=== PATIENT | male | born 1995 | race Caucasian/White ===

== ENCOUNTER 2018-05-17 16:42 | Emergency (ER) | payer OTHER ==
[2018-05-17 17:00] VITALS: BP 139/91
--- NOTE | 2018-05-17 17:23 | UC ---
UC General HPI - HPI Summary HPI Summary: This patient is a 23 year old M presenting to [facility] [place] with a chief complaint of left nostril epistaxis that began an hour ago. The patient rates the pain 0/10 in severity. The patient states the last couple weeks he has been having intermittent nose bleed but they have not been as severe as today. Patient denies dizziness and trauma. He has had past nasal cauterized in this nostril. Hx chronic nosebleeds. - History of Current Complaint Chief Complaint: UCRespiratory Stated Complaint: NOSE BLEED Time Seen by Provider: 05/17/18 16:57 Hx Obtained From: Patient Onset/Duration: Lasting Hours - 1, Still Present Timing: Constant Onset Severity: Moderate Current Severity: Moderate Pain Intensity: 0 Associated Signs & Symptoms: Positive: Other - epistaxis - Allergy/Home Medications Allergies/Adverse Reactions: Allergies Allergy/AdvReac Type Severity Reaction Status Date / Time No Known Allergies Allergy Verified 05/17/18 18:03 Home Medications: Home Medications Finasteride 5 mg PO DAILY 05/17/18 [History Confirmed 05/17/18] Glycopyrrolate 1 mg PO DAILY 05/17/18 [History Confirmed 05/17/18] PMH/Surg Hx/FS Hx/Imm Hx - Additional Past Medical History Additional PMH: epistaxis Other History Of: Negative For: Hepatitis C - Surgical History Surgical History: None - Family History Known Family History: Negative: Respiratory Disease, Seizure Disorder - Social History Alcohol Use: Weekly Substance Use Type: None Smoking Status (MU): Never Smoked Tobacco Review of Systems ENT: Epistaxis Neurological: Negative - dizziness All Other Systems Reviewed And Are Negative: Yes Physical Exam - Summary Physical Exam Summary: General: well-appearing, no pain distress Skin: warm, color reflects adequate perfusion, dry Head: normal Eyes: EOMI, DEBBIE ENT: Anterior epistaxis in the left nostril Neck: supple, nontender Respiratory: CTA, breath sounds present Cardiovascular: RRR Abdomen: soft, nontender Bowel: present Musculoskeletal: normal, strength/ROM intact Neurological: sensory/motor intact, A&O x3 Psychological: affect/mood appropriate Triage Information Reviewed: Yes Vital Signs: Initial Vital Signs Temp 97.7 F 05/17/18 16:54 Pulse 66 05/17/18 16:54 Resp 18 05/17/18 16:54 BP 139/91 05/17/18 16:54 Pulse Ox 100 05/17/18 16:54 Vital Signs Reviewed: Yes Course/Dx - Course Course Of Treatment: Patient is a 22-year-old male who presents to the urgent care with left nostril epistaxis. Unable to visualize with the bleeding but he suspect is anterior bleeding. There is no Rhino Rocket is available in the urgent care therefore I placed the patient a Merocel packing and he seems that the slow down the bleeding. However he was recommended to go to the emergency department if he continues to bleed. Otherwise he was given a referral for an ENT doctor for the next couple days. Patient is hemodynamically stable alert and oriented 3. Patient agrees with plan. - Differential Dx - Multi-Symptom Provider Diagnoses: Epistaxis Discharge - Sign-Out/Discharge Documenting (check all that apply): Patient Departure All imaging exams completed and their final reports reviewed: No Studies - Discharge Plan Condition: Improved Disposition: HOME-RECOMMEND TO ED Patient Education Materials: Nosebleed (ED) Referrals: Liam Lopez MD [Medical Doctor] - Additional Instructions: Patient is discharged to the emergency department for further workup and management. And the patient declined ambulance transfer. - Billing Disposition and Condition Condition: IMPROVED Disposition: Home-Recommend to ED - Attestation Statements Document Initiated by Scribe: Yes Documenting Scribe: Jake Rodriguez Provider For Whom Chary is Documenting (Include Credential): Narendra Hsu MD Scribe Attestation: Jake Saba scribed for Narendra Hsu MD on 05/17/18 at 1817. Scribe Documentation Reviewed: Yes Provider Attestation: The documentation as recorded by the Jake bender accurately reflects the service I personally performed and the decisions made by me, Narendra Hsu MD
== END 2018-05-17 17:28 | disposition home health service (06) ==
LOC: UCEAST 16:42
DX: R04.0 Epistaxis (principal)
CPT/HCPCS: 30905; 99202; G0463

== ENCOUNTER 2018-05-17 17:51 | Emergency (ER) | payer OTHER ==
[2018-05-17] MEDS ORDERED: Lidocaine 2% JELLY* 10 ML JELLY TOPICAL ONE (18:34)
[2018-05-17] MEDS ORDERED: Oxymetazoline 0.05% NASAL SPR* 15 ML BTL LEFT NARE ONE (18:34)
[2018-05-17] MEDS ORDERED: Lidocaine 2% JELLY* 6 ML JELLY TOPICAL ONE (18:38)
--- NOTE | 2018-05-17 18:41 | ED ---
Throat Pain/Nasal Congestion - HPI Summary HPI Summary: 23 year old male presents to bleed from his left naris for the past couple hours. He states he was seen in urgent care and a merocel was placed but they sent him here as they wanted to sure the bleeding was controlled. He states that he has had his nose cauterized before. He states he placed a nasal saline to prevent nosebleeds as has a history of such. He is on blood thinners. No other complaints. He is not dizzy. No active bleeding at this time noted. Discussed with patient and patient would like a Rhino Rocket placed. - History of Current Complaint Chief Complaint: EDEpistaxis Time Seen by Provider: 05/17/18 18:24 - Allergies/Home Medications Allergies/Adverse Reactions: Allergies Allergy/AdvReac Type Severity Reaction Status Date / Time No Known Allergies Allergy Verified 05/17/18 18:03 PMH/Surg Hx/FS Hx/Imm Hx Endocrine/Hematology History: Denies: Hx Anticoagulant Therapy Respiratory History: Denies: Hx Asthma Infectious Disease History: No Infectious Disease History: Denies: Traveled Outside the [place] in Last 30 Days - Family History Known Family History: Negative: Respiratory Disease, Seizure Disorder - Social History Alcohol Use: Weekly Substance Use Type: Reports: None Smoking Status (MU): Never Smoked Tobacco Review of Systems Negative: Fever Positive: Epistaxis Negative: Chest Pain Negative: Shortness Of Breath All Other Systems Reviewed And Are Negative: Yes Physical Exam Triage Information Reviewed: Yes Vital Signs On Initial Exam: Initial Vitals Temp Pulse Resp BP Pulse Ox 98.1 F 63 18 136/82 99 05/17/18 18:00 05/17/18 18:00 05/17/18 18:00 05/17/18 18:00 05/17/18 18:00 Vital Signs Reviewed: Yes Appearance: Positive: Well-Appearing Skin: Positive: Warm, Dry Head/Face: Positive: Normal Head/Face Inspection Eyes: Positive: Normal, Conjunctiva Clear ENT: Positive: Pharynx normal Respiratory/Lung Sounds: Positive: Clear to Auscultation, Breath Sounds Present Cardiovascular: Positive: Normal, RRR Abdomen Description: Positive: Nontender, Soft Bowel Sounds: Positive: Present Musculoskeletal: Positive: Normal Neurological: Positive: Normal Psychiatric: Positive: Normal Procedures - Procedure Summary Procedure Summary: placed 5.5cm rhino rocket in left nares afrin and lidocaine placed prior in insertion placed rhinorocket and inflated with 10cc reevaluated and need an additional 5cc Diagnostics - Vital Signs Vital Signs Temp Pulse Resp BP Pulse Ox 05/17/18 18:00 98.1 F 63 18 136/82 99 - Laboratory Lab Statement: Any lab studies that have been ordered have been reviewed, and results considered in the medical decision making process. Re-Evaluation - Re-Evaluation First Eval Re-Evaluation Time: 19:14 Change: Improved Comment: no rebleeding EENT Course/Dx - Course Course Of Treatment: 23 year old male presents to bleed from his left naris for the past couple hours. He states he was seen in urgent care and a merocel was placed but they sent him here as they wanted to sure the bleeding was controlled. He states that he has had his nose cauterized before. He states he placed a nasal saline to prevent nosebleeds as has a history of such. He is on blood thinners. No other complaints. He is not dizzy. No active bleeding at this time noted. Discussed with patient and patient would like a Rhino Rocket placed. inserted a rhino rocket and bleeding controlled. will placed on augmentin. told to follow up with ENT. patient understand and agrees with plan. - Differential Diagnoses Differential Diagnoses: Epistaxis, Sinusitis, URI/Bronchitis - Diagnoses Provider Diagnoses: Epistaxis Discharge - Sign-Out/Discharge Documenting (check all that apply): Patient Departure - Discharge Plan Condition: Good Disposition: HOME Prescriptions: Amoxicillin/Clavulanate TAB* [Augmentin TAB 875*] 875 mg PO BID #9 tab Patient Education Materials: Nosebleed (ED) Referrals: Liam Lopez MD [Medical Doctor] - Additional Instructions: Take augmentin twice a day for 5 days Follow up with ENT in three days or return to ED to have removed Return to ED if area continues to bleed or any new or worsening symptoms - Billing Disposition and Condition Condition: GOOD Disposition: Home
[2018-05-17] MEDS ORDERED: Amoxicillin/Clavulanate TAB* 875 MG PO ONE (18:51)
[2018-05-17 19:36] VITALS: BP 159/100
== END 2018-05-17 19:37 | disposition home or self-care (01) ==
LOC: ED 17:51
DX: R04.0 Epistaxis (principal)
CPT/HCPCS: 30901; 99283; A9270-GY

== ENCOUNTER 2018-05-18 10:27 | Emergency (ER) | payer OTHER ==
[2018-05-18 10:31] VITALS: BP 110/64
--- NOTE | 2018-05-18 11:30 | ED ---
Throat Pain/Nasal Congestion - HPI Summary HPI Summary: Patient presents with left nare and Lt side facial pain since Rhino Rocket placed yesterday. He had intractable epistaxis requiring this form of tamponade (mircel - epistaxis leaked around this at so had rhinorocket placed here at ED last night). He denies bleeding from his nare or into his throat since placement and also denies fevers or chills. He did wake with pain in his eye this morning which was watering nonstop. He denies difficulty with vision or pain with movement. He took ibuprofen about an hour and a half ago and reports 20 minutes after arriving his pain started to decrease some. He has not tried any Tylenol. He was advised to follow up with her nose and throat on Sunday but since this happened yesterday, he will call first thing Sunday morning. Denies difficulty breathing or swallowing. - History of Current Complaint Chief Complaint: EDGeneral Time Seen by Provider: 05/18/18 10:35 Hx Obtained From: Patient - Allergies/Home Medications Allergies/Adverse Reactions: Allergies Allergy/AdvReac Type Severity Reaction Status Date / Time No Known Allergies Allergy Verified 05/17/18 18:03 PMH/Surg Hx/FS Hx/Imm Hx Previously Healthy: Yes Endocrine/Hematology History: Denies: Hx Anticoagulant Therapy Respiratory History: Denies: Hx Asthma Infectious Disease History: No Infectious Disease History: Denies: Traveled Outside the [place] in Last 30 Days - Family History Known Family History: Negative: Respiratory Disease, Seizure Disorder - Social History Occupation: Student Alcohol Use: Weekly Hx Substance Use: No Substance Use Type: Reports: None Hx Tobacco Use: No Smoking Status (MU): Never Smoked Tobacco Review of Systems Positive: Other - nasal and facial pain s/p rhinorocket placement Physical Exam Triage Information Reviewed: Yes Vital Signs On Initial Exam: Initial Vitals Temp Pulse Resp BP Pulse Ox 97.3 F 66 16 110/64 100 05/18/18 10:28 05/18/18 10:28 05/18/18 10:28 05/18/18 10:28 05/18/18 10:28 Vital Signs Reviewed: Yes Appearance: Positive: Well-Appearing, Well-Nourished, Pain Distress - mild Skin: Positive: Warm, Skin Color Reflects Adequate Perfusion, Dry - no erythema of Lt side of face Head/Face: Positive: Normal Head/Face Inspection Eyes: Positive: Normal, EOMI, Conjunctiva Clear, Other: - sclera injected Lt eye - no drainage - no pain w/ movement ENT: Positive: Pharynx normal - no blood, Nasal congestion - Lt nare w/ rhinorocket in place - blood soaked tamponade but no active drainage Neck: Positive: Supple, Nontender Respiratory/Lung Sounds: Positive: Breath Sounds Present Cardiovascular: Positive: Normal Musculoskeletal: Positive: Normal, Strength/ROM Intact Neurological: Positive: Normal, Sensory/Motor Intact, Alert, Oriented to Person Place, Time, CN Intact II-III Psychiatric: Positive: Normal Procedures - Procedure Summary Procedure Summary: 1-2cc of air reduced from rhinorocket - pt reports improvement of pain, especially from eye - feels this pressure is tolerable and okay to d/c - declines acetaminophen here as ibuprofen is working now Diagnostics - Vital Signs Vital Signs Temp Pulse Resp BP Pulse Ox 05/18/18 10:28 97.3 F 66 16 110/64 100 - Laboratory Lab Statement: Any lab studies that have been ordered have been reviewed, and results considered in the medical decision making process. Re-Evaluation - Re-Evaluation First Eval Change: Improved EENT Course/Dx - Course Course Of Treatment: improved w/ air reduction w/in rhinorocket - pt agrees to follow-up with ENT Sunday - Diagnoses Provider Diagnoses: Nasal pain Discharge - Sign-Out/Discharge Documenting (check all that apply): Patient Departure - Discharge Plan Condition: Stable Additional Instructions: Continue to follow instructions as directed yesterday - if bleeding from nose or throat, return to ED For pain, you may continue ibuprofen and alternate with acetaminophen extra strength for pain Follow-up with ENT on Sunday - Billing Disposition and Condition Condition: STABLE
== END 2018-05-18 12:00 | disposition home or self-care (01) ==
LOC: ED 10:27
DX: J34.89 Other specified disorders of nose and nasal sinuses (principal)
CPT/HCPCS: 99282